=== PATIENT | female | born 1945 | race Caucasian/White ===

== ENCOUNTER → 2017-07-04 | Outpatient (CLI) | payer OTHER ==
[~2017-07-04] MED LIST: ABAT250V; ASCO500 PO; ASPI81CH PO; ATOR40TA PO; BENA20 PO; BENAML10/5 PO; BENAML20/5 PO; BUPR150ER PO; Benazepril HCl10 MG PO; CARV3.125 PO; CHOL10002; CILO50 PO; CIPR500 PO; CLOP75 PO; Calcium + Vita1 EACH PO; DOCU100 PO; ELIQUIS5 MG PO; ERYT1OIN LEFTEYE; FENO54; FURO40 PO; Ferrous Sulfat325 M2 PO; GAVILAX17 GM PO; GEMF600 PO; HYDR1TAB94 PO; KCL 10 MEQ20 MEQ/100 PO; LEVSOD50 PO; LIDO700A20 TOP; METF500 PO; METO100 PO; METO25 PO; MIRT30ST MM; NITR.6SL SL; OMEG1CAP30; OMEG1CAP30 PO; OMEP20ER PO; PANT40 PO; POTA10T PO; PROBIOTICS; Pacerone400 MG PO; RANI150 PO; SERT100 PO; SIMV80 PO; SPIR25 PO; TRAM50 PO
[2017-07-04 14:22] LABS: Protein, Urine Quantitative 8.8 mg/dL (0.0-11.9)
== END | disposition home or self-care (01) ==
LOC: OLS 11:44
PROVIDERS: Internal Medicine
DX: N04.9 Nephrotic syndrome with unspecified morphologic changes (principal)
CPT/HCPCS: 81050; 84156

== ENCOUNTER → 2017-12-14 | Outpatient (CLI) | payer OTHER ==
[~2017-12-14] MED LIST changes: -ABAT250V; -ASPI81CH PO; +ASPI81EC PO; +CALCAVITD PO; -CHOL10002; -Calcium + Vita1 EACH PO; -DOCU100 PO; -ELIQUIS5 MG PO; -Ferrous Sulfat325 M2 PO; -GAVILAX17 GM PO; -HYDR1TAB94 PO; -LEVSOD50 PO; -LIDO700A20 TOP; -MIRT30ST MM; -OMEG1CAP30; -POTA10T PO; -Pacerone400 MG PO; -SERT100 PO; -SPIR25 PO; -TRAM50 PO
[2017-12-14 11:46] LABS: Albumin, Blood 3.1 g/dL (3.4-5.0); Anion Gap 7 mmol/L (6-16); Blood Urea Nitrogen 17 mg/dL (8-24); CO2, Blood 26 mmol/L (21-32); Calcium, Blood 8.6 mg/dL (8.5-10.1); Chloride, Blood 108 mmol/L (98-108); Creatinine, Blood 1.21 mg/dL (0.40-1.00); Glomerular Filtration Rate 46 (60-); Glucose, Blood 105 mg/dL (70-99); Phosphorus, Blood 3.2 mg/dL (2.5-4.9); Potassium, Blood 4.4 mmol/L (3.5-5.5); Sodium, Blood 141 mmol/L (136-145)
[2017-12-14 14:17] LABS: Protein, Urine Quantitative 6.4 mg/dL (0.0-11.9)
[2017-12-14 14:19] LABS: Microalbumin, Urine Quant. 8.13 mg/L (0.000-20.000)
== END | disposition home or self-care (01) ==
LOC: LAB 10:29
PROVIDERS: Internal Medicine; Internal Medicine Nephrology
DX: N18.3 Chronic kidney disease, stage 3 (moderate) (principal); D63.1 Anemia in chronic kidney disease; N25.81 Secondary hyperparathyroidism of renal origin; E55.9 Vitamin D deficiency, unspecified; E78.00 Pure hypercholesterolemia, unspecified; G60.9 Hereditary and idiopathic neuropathy, unspecified; R76.9 Abnormal immunological finding in serum, unspecified; R94.5 Abnormal results of liver function studies; R94.6 Abnormal results of thyroid function studies
CPT/HCPCS: 36415; 80069; 81050; 82043; 82306; 83970; 84156

== ENCOUNTER 2018-05-06 15:04 | Observation (INO) | payer OTHER ==
[~2018-05-06] VITALS: Ht 157.5 cm; Wt 56.0 kg
[~2018-05-06 15:04] MED LIST changes: +ABAT250V; +ASPI81CH PO; -ASPI81EC PO; -CALCAVITD PO; +Calcium + Vita1 EACH PO; +HYDR1TAB94 PO; +LEVSOD50 PO; +MIRT30ST MM; +POTA10T PO; +Pacerone400 MG PO
[2018-05-06] MEDS ORDERED: ELIQUIS5 MG PO (15:28)
[2018-05-06 16:54] LABS: BASOPHILS ABSOLUTE AUTO 0.07 K/mm3 (0.00-0.23); BASOPHILS PERCENT AUTO 1 % (0-2); EOSINOPHILS ABSOLUTE AUTO 0.32 K/mm3 (0.00-0.68); EOSINOPHILS PERCENT AUTO 3 % (0-6); Hemoglobin 9.2 g/dL (11.5-16.0); IMMATURE GRAN ABSOLUTE AUTO 0.03 K/mm3 (0.00-0.10); IMMATURE GRAN PERCENT AUTO 0 % (0-1); LYMPHOCYTES PERCENT AUTO 21 % (21-46); MONOCYTES ABSOLUTE AUTO 0.69 K/mm3 (0.16-1.47); MONOCYTES PERCENT AUTO 6 % (4-13); Mean Corpuscular HGB 19.9 pg (26.0-34.0); Mean Corpuscular HGB Conc 27.1 g/dL (31.5-36.5); Mean Corpuscular Volume 74 fL (80-100); Mean Platelet Volume 9.6 fL (9.1-12.4); NEUTROPHILS ABSOLUTE AUTO 7.38 K/mm3 (1.96-9.15); NEUTROPHILS PERCENT AUTO 68 % (41-73); NRBC ABSOLUTE 0.06 K/mm3 (0.00-0.02); NRBC Auto 0.6 /100 WBC (0.0-0.2); Platelet Count 343 K/mm3 (150-400); RDW Coefficient Variation 24.6 % (11.7-14.2); RDW Standard Deviation 62.8 fL (35.1-46.3); Red Blood Cell Count 4.62 M/mm3 (3.80-5.20); White Blood Cell Count 10.79 K/mm3 (4.00-11.30)
[2018-05-06 17:11] LABS: Albumin, Blood 2.4 g/dL (3.4-5.0); Albumin/Globulin Ratio 0.5 (0.8-1.8); Bilirubin, Total 0.5 mg/dL (0.1-1.0); Bun/Creatinine Ratio 24.6 (12.0-20.0); Creatinine, Blood 1.3 mg/dL (0.40-1.00); Globulin, Blood 4.6 g/dL (2.2-4.0); Potassium, Blood 3.9 mmol/L (3.5-5.5)
[2018-05-07 04:58] LABS: Hematocrit 35.8 % (33.0-51.0); Hemoglobin 9.5 g/dL (11.5-16.0); Mean Corpuscular HGB 19.6 pg (26.0-34.0); Mean Corpuscular HGB Conc 26.5 g/dL (31.5-36.5); Mean Corpuscular Volume 74 fL (80-100); Mean Platelet Volume 10.2 fL (9.1-12.4); NRBC ABSOLUTE 0.07 K/mm3 (0.00-0.02); NRBC Auto 0.7 /100 WBC (0.0-0.2); Platelet Count 344 K/mm3 (150-400); RDW Coefficient Variation 24.8 % (11.7-14.2); RDW Standard Deviation 63.3 fL (35.1-46.3); Red Blood Cell Count 4.84 M/mm3 (3.80-5.20); White Blood Cell Count 9.55 K/mm3 (4.00-11.30)
[2018-05-07 05:15] LABS: Bun/Creatinine Ratio 28.5 (12.0-20.0); Calcium, Blood 7.8 mg/dL (8.5-10.1); Creatinine, Blood 1.23 mg/dL (0.40-1.00); Potassium, Blood 4.2 mmol/L (3.5-5.5)
[2018-05-07] MEDS ORDERED: CHOL10002 (10:17)
[2018-05-07] MEDS ORDERED: OMEG1CAP30 (10:18)
[2018-05-07] MEDS ORDERED: SERT100 PO (10:19)
[2018-05-07] MEDS ORDERED: PANT40 PO (10:19)
[2018-05-07] MEDS ORDERED: SPIR25 PO (10:20)
[2018-05-08] MEDS ORDERED: Ferrous Sulfat325 M2 PO (11:35)
[2018-05-08] MEDS ORDERED: DOCU100 PO (11:36)
[2018-05-08] MEDS ORDERED: LIDO700A20 TOP (11:37)
[2018-05-08] MEDS ORDERED: GAVILAX17 GM PO (11:38)
[2018-05-08] MEDS ORDERED: TRAM50 PO (11:38)
== END 2018-05-08 13:24 | disposition home health service (06) ==
LOC: ER 15:04 → MEDS 19:41 → ENPENDDIS 05-08 10:00 → MEDS 05-08 13:24
PROVIDERS: Internal Medicine; Physician Assistant
DX: S32.592A Other specified fracture of left pubis, initial encounter for closed fracture (principal); D64.9 Anemia, unspecified; I48.91 Unspecified atrial fibrillation; I25.10 Atherosclerotic heart disease of native coronary artery without angina pectoris; I13.0 Hypertensive heart and chronic kidney disease with heart failure and stage 1 through stage 4 chronic kidney disease, or unspecified chronic kidney disease; I50.9 Heart failure, unspecified; N18.9 Chronic kidney disease, unspecified; J44.9 Chronic obstructive pulmonary disease, unspecified; Z86.73 Personal history of transient ischemic attack (TIA), and cerebral infarction without residual deficits; Z96.642 Presence of left artificial hip joint; Z79.899 Other long term (current) drug therapy; Z79.82 Long term (current) use of aspirin
CPT/HCPCS: 36415; 73700; 80048; 80053; 82947; 85025; 85027; 93005; 93010; 97110; 97116; 97162; 97166; 97535; 99285-25; G0378; G8978; G8979; G8980; G8987; G8988